=== PATIENT | male | born 1980 | race African-American/Black ===

== ENCOUNTER 2017-07-04 19:35 | Emergency (ER) | payer OTHER ==
[2017-07-04] MEDS ORDERED: TETRACAINE HCL 0.5% 2ML OPTH ONE (20:17)
[2017-07-04] MEDS ORDERED: NA CHLORIDE 0.9% 2,000 ML ONE (20:23)
[2017-07-04] MEDS ORDERED: FLUORESCEIN SODIUM 0.6 MG/WRAP ONE (21:07)
[2017-07-04] MEDS ORDERED: GENTAMICIN 0.3% OPTH DROP 5ML ONE ×2 (21:20→21:24)
--- NOTE | 2017-07-04 21:28 | EDPHYS ---
Physician Documentation [facility] Name: Josué Haney Age: 36 yrs Sex: Male : 1980 Arrival Date: 07/04/2017 Time: 19:37 Bed 20 Private MD: ED Physician José Luis Abel HPI: 07/04 21:18 This 36 yrs old Black Male presents to ER via Ambulatory with complaints of Foreign jr8 Body In Eye, Eye Pain. 21:18 The patient is experiencing burning, pain, redness, tearing, The patient sustained jr8 Unknown. Onset: The symptoms/episode began/occurred acutely, today. Duration: the symptoms are continuous. Aggravated by opening eye, Alleviated by nothing. Associated signs and symptoms: Pertinent positives: None. Patient does not utilize any form of vision correction. Severity of symptoms: At their worst the symptoms were moderate in the emergency department the symptoms are unchanged. The patient has not experienced similar symptoms in the past. The patient has not recently seen a physician. Patient stated that he was cleaning at work. Thinks he may have got a chemical dust in eyes. Was wearing eye protection but with sweat thinks it transferred into eyes. Utilized eye wash station prior to arrival but still having burning in eyes . Historical: - Allergies: 19:47 No Known Allergies; bp - Home Meds: 19:47 None [Active]; bp - PMHx: 19:47 None; bp - Immunization history:: Adult Immunizations up to date. - Social history:: Smoking status: Patient uses tobacco products, smokes one-half pack cigarettes per day, Patient uses alcohol, occasionally. ROS: 21:18 ENT: Negative for injury, pain, and discharge, Neck: Negative for injury, pain, and jr8 swelling, Cardiovascular: Negative for chest pain, palpitations, and edema, Respiratory: Negative for shortness of breath, cough, wheezing, and pleuritic chest pain, Abdomen/GI: Negative for abdominal pain, nausea, vomiting, diarrhea, and constipation, Back: Negative for injury and pain, MS/Extremity: Negative for injury and deformity, Skin: Negative for injury, rash, and discoloration, Neuro: Negative for headache, weakness, numbness, tingling, and seizure. 21:18 Eyes: Positive for pain, redness, tearing, of the right eye and left eye. Exam: 21:18 Head/Face: Normocephalic, atraumatic. ENT: Nares patent. No nasal discharge, no jr8 septal abnormalities noted. Tympanic membranes are normal and external auditory canals are clear. Oropharynx with no redness, swelling, or masses, exudates, or evidence of obstruction, uvula midline. Mucous membranes moist. Cardiovascular: Regular rate and rhythm with a normal S1 and S2. No gallops, murmurs, or rubs. Normal PMI, no JVD. No pulse deficits. Respiratory: Lungs have equal breath sounds bilaterally, clear to auscultation and percussion. No rales, rhonchi or wheezes noted. No increased work of breathing, no retractions or nasal flaring. Skin: Warm, dry with normal turgor. Normal color with no rashes, no lesions, and no evidence of cellulitis. MS/ Extremity: Pulses equal, no cyanosis. Neurovascular intact. Full, normal range of motion. Neuro: Awake and alert, GCS 15, oriented to person, place, time, and situation. Cranial nerves II-XII grossly intact. Motor strength 5/5 in all extremities. Sensory grossly intact. Cerebellar exam normal. Normal gait. 21:18 Eyes: Periorbital structures: swelling, that is mild, bilaterally, Pupils: equal, round, and reactive to light and accomodation, Extraocular movements: intact throughout, Conjunctiva: injected, bilaterally, tearing noted, bilaterally, Corneas: abrasion, that is small, on the left, on the right, a fluorescein strip employed to appreciate the findings, Sclera: no appreciated abnormality, Anterior chamber: normal, Lids and lashes: appear normal. Vital Signs: 19:47 BP 128 / 78; Pulse 87; Resp 16; Temp 98.8; Pulse Ox 98% ; Weight 63.5 kg; Height 5 ft. bp 6 in. (167.64 cm); 21:40 BP 120 / 68; Pulse 78; Resp 18; Pulse Ox 100% on R/A; Pain 0/10; ea 19:47 Body Mass Index 22.60 (63.50 kg, 167.64 cm) bp Visual Acuity: 21:10 Left Eye Visual acuity 20/20, ; Right Eye Visual acuity 20/20, ; Without Lenses; ea MDM: 20:08 Patient medically screened. jr8 21:18 Data reviewed: vital signs, nurses notes, and as a result, I will discharge patient. jr8 Data interpreted: Pulse oximetry: on room air is 98 %. Interpretation: normal. Counseling: I had a detailed discussion with the patient and/or guardian regarding: the historical points, exam findings, and any diagnostic results supporting the discharge/admit diagnosis, the need for outpatient follow up, an opthalmologist, to return to the emergency department if symptoms worsen or persist or if there are any questions or concerns that arise at home. ED course: discussed with patient that he needs to f/u with ophthalmology tomorrow for further examination of chemical exposure. Patient felt better after Jb lenses washout. Would f/u with ophthalmology tomorrow . Administered Medications: 20:20 Drug: Tetracaine Drops 0.5 % 1 drops Route: Ophthalmic; Site: both eyes; ea 21:38 Drug: Gentamicin Ointment 0.3 % 0.5 inches Route: Ophthalmic; Site: both eyes; ea Disposition: 07/04/17 21:27 Discharged to Home. Impression: Injury of conjunctiva and corneal abrasion without foreign body, right eye, Injury of conjunctiva and corneal abrasion without foreign body, left eye. - Condition is Stable. - Discharge Instructions: Corneal Abrasion. - Prescriptions for Gentamicin 0.3 % (3 mg/gram) Ophthalmic Ointment - apply 0.5 inch by OPHTHALMIC route 2-3 times daily for 7 days to apply to both eyes; 3.5 gram. - Medication Reconciliation Form, Thank You Letter, Antibiotic Education, Prescription Opioid Use, Work release form form. - Follow up: Chepe Pennington MD; When: Tomorrow; Reason: Recheck today's complaints, Continuance of care, Re-evaluation by your physician. - Problem is new. - Symptoms have improved. Addendum: 07/20/2017 21:53 Co-signature as Attending Physician, José Luis Abel MD. g s Signatures: Torsten Ruiz PA PA jr8 Shannon Romero RN RN ea Starr, Gregory, MD MD gs Peltier, Brian, RN RN bp Corrections: (The following items were deleted from the chart) 07/04 21:50 21:27 07/04/2017 21:27 Discharged to Home. Impression: Injury of conjunctiva and ea corneal abrasion without foreign body, right eye; Injury of conjunctiva and corneal abrasion without foreign body, left eye. Condition is Stable. Forms are Medication Reconciliation Form, Thank You Letter, Antibiotic Education, Prescription Opioid Use. Follow up: Chepe Pennington; When: Tomorrow; Reason: Recheck today's complaints, Continuance of care, Re-evaluation by your physician. Problem is new. Symptoms have improved. jr8
--- NOTE | 2017-07-04 21:28 | ER ---
Nurse's Notes [facility] Name: Josué Haney Age: 36 yrs Sex: Male : 1980 Arrival Date: 07/04/2017 Time: 19:37 Bed 20 Private MD: Diagnosis: Injury of conjunctiva and corneal abrasion without foreign body, right eye;Injury of conjunctiva and corneal abrasion without foreign body, left eye Presentation: 07/04 19:46 Presenting complaint: Patient states: I GOT SOMETHING IN MY EYE AT WORK. Transition of bp care: patient was not received from another setting of care. 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 The patient denies any loss of vision. Onset of symptoms was July 04, 2017 at 12:00. Initial Sepsis Screen: Does the patient meet any 2 criteria? No. Patient's initial sepsis screen is negative. Does the patient have a suspected source of infection? No. Patient's initial sepsis screen is negative. Care prior to arrival: None. 19:46 Method Of Arrival: Ambulatory bp 19:46 Acuity: LAVINIA 3 bp Triage Assessment: 19:47 General: Appears distressed, comfortable, Behavior is calm, cooperative, appropriate bp for age. Pain: Complains of pain in left eye. EENT: Sclera/Cornea are reddened in outer aspect of conjuctiva of right eye, iris of right eye, inner aspect of conjuctiva of right eye, outer aspect of conjuctiva of left eye, iris of left eye and inner aspect of conjunctiva of left eye. Neuro: Level of Consciousness is awake, alert, obeys commands, Oriented to person, place, time, situation, Appropriate for age. Cardiovascular: No deficits noted. Respiratory: Airway is patent Respiratory effort is even, unlabored, Respiratory pattern is regular, symmetrical. GI: No signs and/or symptoms were reported involving the gastrointestinal system. : No signs and/or symptoms were reported regarding the genitourinary system. Derm: No deficits noted. Musculoskeletal: Circulation, motion, and sensation intact. Range of motion: intact in all extremities. Historical: - Allergies: 19:47 No Known Allergies; bp - Home Meds: 19:47 None [Active]; bp - PMHx: 19:47 None; bp - Immunization history:: Adult Immunizations up to date. - Social history:: Smoking status: Patient uses tobacco products, smokes one-half pack cigarettes per day, Patient uses alcohol, occasionally. Screenin:06 Abuse screen: Denies threats or abuse. Nutritional screening: No deficits noted. ea Tuberculosis screening: No symptoms or risk factors identified. Fall Risk None identified. Assessment: 20:05 General: Appears uncomfortable, Behavior is calm, cooperative, appropriate for age. ea Pain: Complains of pain in right eye and left eye. Neuro: Level of Consciousness is awake, alert, obeys commands, Oriented to person, place, time, situation. Cardiovascular: Patient's skin is warm and dry. Respiratory: Airway is patent Respiratory effort is even, unlabored, Respiratory pattern is regular, symmetrical. GI: No signs and/or symptoms were reported involving the gastrointestinal system. : No signs and/or symptoms were reported regarding the genitourinary system. EENT: EENT: Eyes are tearing on outer aspect of conjuctiva of right eye, iris of right eye, inner aspect of conjuctiva of right eye, right inner canthus, outer aspect of conjuctiva of left eye, iris of left eye and inner aspect of conjunctiva of left eye redness noted to hugo eyes. Derm: Skin is pink, warm \T\ dry. 21:09 Reassessment: Patient and/or family updated on plan of care and expected duration. Pain ea level reassessed. Patient is alert, oriented x 3, equal unlabored respirations, skin warm/dry/pink. 21:46 Reassessment: Patient and/or family updated on plan of care and expected duration. Pain ea level reassessed. Patient is alert, oriented x 3, equal unlabored respirations, skin warm/dry/pink. Discharge instructions given to patient, verbalized the understanding of instruction. Vital Signs: 19:47 BP 128 / 78; Pulse 87; Resp 16; Temp 98.8; Pulse Ox 98% ; Weight 63.5 kg; Height 5 ft. bp 6 in. (167.64 cm); 21:40 BP 120 / 68; Pulse 78; Resp 18; Pulse Ox 100% on R/A; Pain 0/10; ea 19:47 Body Mass Index 22.60 (63.50 kg, 167.64 cm) bp Visual Acuity: 21:10 Left Eye Visual acuity 20/20, ; Right Eye Visual acuity 20/20, ; Without Lenses; ea ED Course: 19:37 Patient arrived in ED. am2 19:47 Triage completed. bp 19:47 Arm band placed on. EKG completed in triage. Results shown to MD. EKG completed in bp triage. Results shown to MD. 19:49 Lobo Weldon, RN is Primary Nurse. bp 19:52 Torsten Ruiz PA is PHCP. jr8 19:52 José Luis Abel MD is Attending Physician. jr8 20:30 Patient has correct armband on for positive identification. Bed in low position. Call ea light in reach. 21:09 Eye irrigation of both eyes with 1 liter normal saline, Patient tolerated well. ea 21:26 Chepe Pennington MD is Referral Physician. jr8 21:47 No provider procedures requiring assistance completed. Patient did not have IV access ea during this emergency room visit. Administered Medications: 20:20 Drug: Tetracaine Drops 0.5 % 1 drops Route: Ophthalmic; Site: both eyes; ea 21:38 Drug: Gentamicin Ointment 0.3 % 0.5 inches Route: Ophthalmic; Site: both eyes; ea Outcome: 21:27 Discharge ordered by MD. jr8 21:47 Discharged to home ambulatory, with family. ea 21:47 Condition: improved 21:47 Discharge instructions given to patient, Instructed on discharge instructions, follow up and referral plans. medication usage, Demonstrated understanding of instructions, follow-up care, medications, Prescriptions given X 1. 21:50 Patient left the ED. ea Signatures: Torsten Ruiz PA PA jr8 Layla Vidal am2 Shannon Romero, RN RN ea Lobo Weldon, RN RN bp
== END 2017-07-04 21:50 | disposition home or self-care (01) ==
LOC: ER 19:35
DX: S05.02XA Injury of conjunctiva and corneal abrasion without foreign body, left eye, initial encounter (principal); S05.01XA Injury of conjunctiva and corneal abrasion without foreign body, right eye, initial encounter; F17.210 Nicotine dependence, cigarettes, uncomplicated; X58.XXXA Exposure to other specified factors, initial encounter; Y93.89 Activity, other specified; Y92.9 Unspecified place or not applicable
CPT/HCPCS: 99283; J7030

== ENCOUNTER 2017-08-24 18:36 | Emergency (ER) | payer OTHER ==
[2017-08-24] MEDS ORDERED: NA CHLORIDE 0.9% 1,000 ML ONE (19:53)
[2017-08-24] MEDS ORDERED: TETRACAINE HCL 0.5% 2ML OPTH ONE (19:53)
[2017-08-24] MEDS ORDERED: FLUORESCEIN SODIUM 0.6 MG/WRAP ONE (19:53)
--- NOTE | 2017-08-24 20:26 | ER ---
Nurse's Notes [facility] Name: Josué Haney Age: 37 yrs Sex: Male : 1980 Arrival Date: 08/24/2017 Time: 18:39 Bed Treatment Private MD: None, None Diagnosis: Injury of conjunctiva and corneal abrasion without foreign body Presentation: 08/24 18:47 Presenting complaint: Patient states: "I got something in my right eye yesterday at the [employer] and I flushed it out. I don't think anything is in there, but it's irritated. I have been here for it before. I want my eye numbed and flushed.". Presenting complaint:. Transition of care: patient was not received from another setting of care. Onset of symptoms was August 23, 2017. Risk Assessment: Do you want to hurt yourself or someone else? Patient reports no desire to harm self or others. Initial Sepsis Screen: Does the patient meet any 2 criteria? No. Patient's initial sepsis screen is negative. Does the patient have a suspected source of infection? No. Patient's initial sepsis screen is negative. Care prior to arrival: None. 18:47 Method Of Arrival: Ambulatory lk1 18:47 Acuity: LAVINIA 4 lk1 Historical: - Allergies: 18:49 No Known Allergies; lk1 - PMHx: 18:49 None; lk1 - PSHx: 18:49 None; lk1 - Immunization history:: Adult Immunizations up to date. - Social history:: Smoking status: Patient uses tobacco products, smokes one pack cigarettes per day. - Ebola Screening: : No symptoms or risks identified at this time. Screenin:45 Abuse screen: Denies threats or abuse. Nutritional screening: No deficits noted. bb Tuberculosis screening: No symptoms or risk factors identified. Fall Risk None identified. Assessment: 19:45 General: Appears uncomfortable, Behavior is calm, cooperative. Pain: Complains of pain bb in right eye. Neuro: Level of Consciousness is awake, alert, obeys commands, Oriented to person, place, time, situation. Cardiovascular: No deficits noted. Respiratory: Respiratory effort is even, unlabored. GI: No signs and/or symptoms were reported involving the gastrointestinal system. Derm: Skin is clammy, Skin is normal, Skin temperature is warm. Musculoskeletal: Circulation, motion, and sensation intact. 20:51 Reassessment: Patient is alert, oriented x 3, equal unlabored respirations, skin bb warm/dry/pink. pt states his eye is still slightly irritated but is feeling better now, pt verbalized understanding of and agrees to plan of care discharge instructions given, pt ambulated with steady gait to exit accompanied by family. Vital Signs: 18:49 BP 117 / 71; Pulse 76; Resp 15; Temp 98.9(TE); Pulse Ox 99% on R/A; Weight 63.5 kg (R); lk1 Height 5 ft. 6 in. (167.64 cm) (R); Pain 0/10; 20:34 BP 124 / 74; Pulse 80; Resp 18; Temp 97.9; Pulse Ox 99% on R/A; Pain 0/10; fu 18:49 Body Mass Index 22.60 (63.50 kg, 167.64 cm) lk1 ED Course: 18:39 Patient arrived in ED. mr 18:39 None, None is Private Physician. mr 18:48 Triage completed. lk1 18:50 Arm band placed on right wrist. lk1 19:33 Torsten Ruiz PA is PHCP. jr8 19:33 Dong Jung MD is Attending Physician. jr8 19:45 Patient has correct armband on for positive identification. Adult w/ patient. bb 19:45 No provider procedures requiring assistance completed. Patient did not have IV access bb during this emergency room visit. 20:10 Eye irrigation of right eye w/ Donald lens with 1 liter normal saline, Patient bb tolerated well. 20:25 Chepe Pennington MD is Referral Physician. jr8 Administered Medications: 20:01 CANCELLED (Duplicate Order): Tetracaine Drops 0.5 % 1 drops Ophthalmic once bb 20:03 Drug: NS 0.9% 1000 ml {Note: verbal order per Vipin ALBA administer to right eye via bb donald lens.} Route: IV; Rate: 1000 ml; Site: Other; 20:50 Follow up: IV Status: Completed infusion; IV Intake: 1000ml bb 20:04 Drug: Tetracaine Drops 0.5 % 1 drops Route: Ophthalmic; Site: right eye; bb 20:04 Drug: Fluorescein Strip 1 strip Route: Ophthalmic; Site: right eye; bb Intake: 20:50 IV: 1000ml; Total: 1000ml. bb Outcome: 20:26 Discharge ordered by MD. dyson 20:53 Discharged to home ambulatory, with family. clay 20:53 Condition: stable 20:53 Discharge instructions given to patient, Instructed on discharge instructions, follow up and referral plans. medication usage, Demonstrated understanding of instructions, follow-up care, medications, Prescriptions given X 1. 20:53 Patient left the ED. bb Signatures: Ceci Alicea Brenda, RN RN Torsten Blanchard PA PA jr8 Magalie Taylor RN RN lk1 Nikhil Denson RN RN
--- NOTE | 2017-08-24 20:26 | EDPHYS ---
Physician Documentation [facility] Name: Josué Haney Age: 37 yrs Sex: Male : 1980 Arrival Date: 08/24/2017 Time: 18:39 Bed Treatment Private MD: None, None ED Physician Dong Jung HPI: 08/24 20:14 This 37 yrs old Black Male presents to ER via Ambulatory with complaints of Foreign jr8 Body In Eye. 20:14 The patient is experiencing burning, redness, tearing. Onset: The symptoms/episode jr8 began/occurred acutely, today. Duration: the symptoms are continuous. Aggravated by light, Alleviated by nothing. Associated signs and symptoms: Pertinent positives: None. Patient does not utilize any form of vision correction. Severity of symptoms: At their worst the symptoms were mild in the emergency department the symptoms are unchanged. The patient has not experienced similar symptoms in the past. The patient has not recently seen a physician. Patient stated that he got carwash soap in eye. Had washed it out earlier and felt better. After a while it started to become irritated again . Historical: - Allergies: 18:49 No Known Allergies; lk1 - PMHx: 18:49 None; lk1 - PSHx: 18:49 None; lk1 - Immunization history:: Adult Immunizations up to date. - Social history:: Smoking status: Patient uses tobacco products, smokes one pack cigarettes per day. - Ebola Screening: : No symptoms or risks identified at this time. ROS: 20:14 ENT: Negative for injury, pain, and discharge, Neck: Negative for injury, pain, and jr8 swelling, Cardiovascular: Negative for chest pain, palpitations, and edema, Respiratory: Negative for shortness of breath, cough, wheezing, and pleuritic chest pain, Abdomen/GI: Negative for abdominal pain, nausea, vomiting, diarrhea, and constipation, Back: Negative for injury and pain, MS/Extremity: Negative for injury and deformity, Skin: Negative for injury, rash, and discoloration, Neuro: Negative for headache, weakness, numbness, tingling, and seizure. 20:14 Eyes: Positive for pain, redness, tearing, of the right eye. Exam: 20:14 Visual Acuity: Visual acuity is within normal limits. jr8 20:14 Constitutional: This is a well developed, well nourished patient who is awake, alert, and in no acute distress. Head/Face: Normocephalic, atraumatic. ENT: Nares patent. No nasal discharge, no septal abnormalities noted. Tympanic membranes are normal and external auditory canals are clear. Oropharynx with no redness, swelling, or masses, exudates, or evidence of obstruction, uvula midline. Mucous membranes moist. Cardiovascular: Regular rate and rhythm with a normal S1 and S2. No gallops, murmurs, or rubs. Normal PMI, no JVD. No pulse deficits. Respiratory: Lungs have equal breath sounds bilaterally, clear to auscultation and percussion. No rales, rhonchi or wheezes noted. No increased work of breathing, no retractions or nasal flaring. Skin: Warm, dry with normal turgor. Normal color with no rashes, no lesions, and no evidence of cellulitis. MS/ Extremity: Pulses equal, no cyanosis. Neurovascular intact. Full, normal range of motion. Neuro: Awake and alert, GCS 15, oriented to person, place, time, and situation. Cranial nerves II-XII grossly intact. Motor strength 5/5 in all extremities. Sensory grossly intact. Cerebellar exam normal. Normal gait. 20:14 Eyes: Periorbital structures: appear normal, Pupils: equal, round, and reactive to light and accomodation, Extraocular movements: intact throughout, Conjunctiva: injected, in the right eye, tearing noted, in right eye, Corneas: abrasion, that is small, on the right, a fluorescein strip employed to appreciate the findings, Sclera: no appreciated abnormality, Lids and lashes: appear normal, Examination of the other eye reveals no obvious gross abnormality. Vital Signs: 18:49 BP 117 / 71; Pulse 76; Resp 15; Temp 98.9(TE); Pulse Ox 99% on R/A; Weight 63.5 kg (R); lk1 Height 5 ft. 6 in. (167.64 cm) (R); Pain 0/10; 20:34 BP 124 / 74; Pulse 80; Resp 18; Temp 97.9; Pulse Ox 99% on R/A; Pain 0/10; fu 18:49 Body Mass Index 22.60 (63.50 kg, 167.64 cm) lk1 Procedures: 20:23 Eye Exam: Fluorescein. jr8 MDM: 19:33 Patient medically screened. jr8 20:23 Data reviewed: vital signs, nurses notes, and as a result, I will discharge patient. jr8 Data interpreted: Pulse oximetry: on room air is 99 %. Interpretation: normal. Counseling: I had a detailed discussion with the patient and/or guardian regarding: the historical points, exam findings, and any diagnostic results supporting the discharge/admit diagnosis, the need for outpatient follow up, an opthalmologist, to return to the emergency department if symptoms worsen or persist or if there are any questions or concerns that arise at home. ED course: explained to patient he has small abrasion noted to right cornea. Will need drops for a few days and to f/u with eye doctor. Patient good with this and will follow up . 08/24 20:01 Order name: Fluoresene Opth strip; Complete Time: 20:04 bb Administered Medications: 20:01 CANCELLED (Duplicate Order): Tetracaine Drops 0.5 % 1 drops Ophthalmic once bb 20:03 Drug: NS 0.9% 1000 ml {Note: verbal order per Vipin ALBA administer to right eye via bb donald lens.} Route: IV; Rate: 1000 ml; Site: Other; 20:50 Follow up: IV Status: Completed infusion; IV Intake: 1000ml bb 20:04 Drug: Tetracaine Drops 0.5 % 1 drops Route: Ophthalmic; Site: right eye; bb 20:04 Drug: Fluorescein Strip 1 strip Route: Ophthalmic; Site: right eye; bb Disposition: 08/25 08:04 Co-signature as Attending Physician, Dong Jung MD I agree with the assessment and wa plan of care. Disposition: 08/24/17 20:26 Discharged to Home. Impression: Injury of conjunctiva and corneal abrasion without foreign body. - Condition is Stable. - Discharge Instructions: Corneal Abrasion. - Prescriptions for Gentamicin 0.3 % Ophthalmic Drops - instill 2 drops by OPHTHALMIC route every 4 hours for 7 days; 1 bottle. - Medication Reconciliation Form, Thank You Letter, Antibiotic Education, Prescription Opioid Use form. - Follow up: Chepe Pennington MD; When: 5 - 6 days; Reason: Recheck today's complaints, Continuance of care, Re-evaluation by your physician. - Problem is new. - Symptoms have improved. Signatures: Crystal Pruitt, RN RN bb Torsten Ruiz PA PA jr8 Magalie Taylor RN RN lk1 Dong Jung MD MD wa Corrections: (The following items were deleted from the chart) 08/24 20:01 20:01 Tetracaine Drops 0.5 % 1 drops Ophthalmic once ordered. jr8 20:24 20:14 Eyes: Periorbital structures: appear normal, Pupils: equal, round, and reactive jr8 to light and accomodation, Extraocular movements: intact throughout, Conjunctiva: injected, in the right eye, tearing noted, in right eye, Corneas: are normal, Sclera: no appreciated abnormality, Lids and lashes: appear normal, Examination of the other eye reveals no obvious gross abnormality, jr8 20:53 20:26 08/24/2017 20:26 Discharged to Home. Impression: Injury of conjunctiva and bb corneal abrasion without foreign body. Condition is Stable. Forms are Medication Reconciliation Form, Thank You Letter, Antibiotic Education, Prescription Opioid Use. Follow up: Chepe Pennington; When: 5 - 6 days; Reason: Recheck today's complaints, Continuance of care, Re-evaluation by your physician. Problem is new. Symptoms have improved. jr8
== END 2017-08-24 20:53 | disposition home or self-care (01) ==
LOC: ER 18:36
DX: S05.01XA Injury of conjunctiva and corneal abrasion without foreign body, right eye, initial encounter (principal); X58.XXXA Exposure to other specified factors, initial encounter; Y93.9 Activity, unspecified; Y92.9 Unspecified place or not applicable; F17.210 Nicotine dependence, cigarettes, uncomplicated
CPT/HCPCS: 96360; 99283; J7030

== ENCOUNTER 2017-08-29 14:57 | Emergency (ER) | payer OTHER ==
[2017-08-29] MEDS ORDERED: TETRACAINE HCL 0.5% 2ML OPTH ONE (15:35)
[2017-08-29] MEDS ORDERED: FLUORESCEIN SODIUM 0.6 MG/WRAP ONE (15:35)
--- NOTE | 2017-08-29 16:04 | ER ---
Nurse's Notes [facility] Name: Josué Haney Age: 37 yrs Sex: Male : 1980 Arrival Date: 08/29/2017 Time: 14:59 Bed 12 Private MD: None, None Diagnosis: Conjunctivitis Presentation: 08/29 15:01 Presenting complaint: Patient states: i got soap in my R eye a couple of days ago and i hj was here couple of days ago and they've flushed and it was better and i think its back and i want to have it flushed again; denies blurry vision; denies trauma to the area;. Transition of care: patient was not received from another setting of care. Onset of symptoms was August 29, 2017. Risk Assessment: Do you want to hurt yourself or someone else? Patient reports no desire to harm self or others. Initial Sepsis Screen: Does the patient meet any 2 criteria? No. Patient's initial sepsis screen is negative. Does the patient have a suspected source of infection? No. Patient's initial sepsis screen is negative. Care prior to arrival: None. 15:01 Method Of Arrival: Ambulatory 15:01 Acuity: LAVINIA 4 hj Triage Assessment: 15:04 General: Appears in no apparent distress. uncomfortable, Behavior is calm, cooperative, hj appropriate for age. Pain: Complains of pain in right eye. Historical: - Allergies: 15:03 No Known Allergies; hj - Home Meds: 15:03 None [Active]; hj - PMHx: 15:03 None; hj - PSHx: 15:03 None; hj - Immunization history:: Adult Immunizations up to date. - Social history:: Smoking status: Patient uses tobacco products, smokes one-half pack cigarettes per day, Patient uses alcohol, occasionally. - Ebola Screening: : Patient negative for fever greater than or equal to 101.5 degrees Fahrenheit, and additional compatible Ebola Virus Disease symptoms Patient denies exposure to infectious person Patient denies travel to an Ebola-affected area in the 21 days before illness onset. Screenin:04 Abuse screen: Denies threats or abuse. Denies injuries from another. Nutritional hj screening: No deficits noted. Tuberculosis screening: No symptoms or risk factors identified. Fall Risk None identified. Assessment: 15:36 General: Appears in no apparent distress. uncomfortable, Behavior is calm, cooperative, hj appropriate for age. Pain: Pain radiates to right eye. Neuro: Level of Consciousness is awake, alert, obeys commands, Oriented to person, place, time, situation, Appropriate for age. Cardiovascular: Capillary refill < 3 seconds Patient's skin is warm and dry. Respiratory: Airway is patent Respiratory effort is even, unlabored, Respiratory pattern is regular, symmetrical. GI: No signs and/or symptoms were reported involving the gastrointestinal system. : No signs and/or symptoms were reported regarding the genitourinary system. EENT: Eyes are tearing on iris of right eye. Derm: No signs and/or symptoms reported regarding the dermatologic system. Musculoskeletal: No signs and/or symptoms reported regarding the musculoskeletal system. Vital Signs: 15:04 BP 123 / 81; Pulse 94; Resp 18; Temp 99.4(O); Pulse Ox 100% on R/A; Weight 63.5 kg; hj Height 5 ft. 6 in. (167.64 cm); Pain 1/10; 15:04 Body Mass Index 22.60 (63.50 kg, 167.64 cm) hj Visual Acuity: 15:39 Left Eye Visual acuity 20/20, ; Right Eye Visual acuity 20/20, ; Both Eyes Visual hj acuity 20/20; Without Lenses; ED Course: 14:59 Patient arrived in ED. sb2 15:00 None, None is Private Physician. sb2 15:03 Triage completed. hj 15:04 Arm band placed on right wrist. hj 15:04 Patient has correct armband on for positive identification. Bed in low position. Call hj light in reach. Side rails up X 1. 15:21 David Hendricks PA is PHCP. [facility] 15:21 José Luis Able MD is Attending Physician. [facility] 15:30 Alex Brothers, EDGAR is Primary Nurse. hj 16:15 No provider procedures requiring assistance completed. Patient did not have IV access hj during this emergency room visit. Administered Medications: 15:30 Drug: Tetracaine Solution (0.5 %) 1 application Route: Topical; Site: right eye; hj Outcome: 16:03 Discharge ordered by . [facility] 16:15 Discharged to home ambulatory. hj 16:15 Condition: stable 16:15 Discharge instructions given to patient, Instructed on discharge instructions, follow up and referral plans. medication usage, Demonstrated understanding of instructions, follow-up care, medications, Prescriptions given X 1. 16:15 Patient left the ED. hj Signatures: David Hendricks PA PA jmm Joaquin, Henry, RN RN Shavon Mullen sb2 Corrections: (The following items were deleted from the chart) 15:06 15:04 Pulse 94bpm; Resp 18bpm; Pulse Ox 100% RA; Temp 99.4F Oral; 63.5 kg; Height 5 ft. hj 6 in.; BMI: 22.6; Pain 1/10; hj
--- NOTE | 2017-08-29 16:04 | EDPHYS ---
Physician Documentation [facility] Name: Josué Haney Age: 37 yrs Sex: Male : 1980 Arrival Date: 08/29/2017 Time: 14:59 Bed 12 Private MD: None, None ED Physician José Luis Abel HPI: 08/29 15:30 This 37 yrs old Black Male presents to ER via Ambulatory with complaints of Eye Problem.[facility] 15:30 The patient sustained a splash. Onset: The symptoms/episode began/occurred acutely, on [facility] 08/24/2017. This is a 37 year old male with no chronic medical conditions that presents to the ED with right eye irritation beginning approx 5 days ago after his right eye eas splashed with soap 5 days ago. The patient states that he would like to get irrigation of his right eye again to relieve discomfort. . Patient denies change in vision, denies fever, denies pain. Historical: - Allergies: 15:03 No Known Allergies; hj - Home Meds: 15:03 None [Active]; hj - PMHx: 15:03 None; hj - PSHx: 15:03 None; hj - Immunization history:: Adult Immunizations up to date. - Social history:: Smoking status: Patient uses tobacco products, smokes one-half pack cigarettes per day, Patient uses alcohol, occasionally. - Ebola Screening: : Patient negative for fever greater than or equal to 101.5 degrees Fahrenheit, and additional compatible Ebola Virus Disease symptoms Patient denies exposure to infectious person Patient denies travel to an Ebola-affected area in the 21 days before illness onset. ROS: 15:30 Constitutional: Negative for fever, chills, and weight loss. jmm 15:30 Eyes: Positive for redness, Negative for vision loss, visual disturbance. 15:30 All other systems are negative. Exam: 15:30 Constitutional: This is a well developed, well nourished patient who is awake, alert, jmm and in no acute distress. 15:30 Cardiovascular: Regular rate and rhythm. No edema appreciated Respiratory: Normal respirations, no respiratory distress appreciated Back: Normal ROM Skin: General appearance color normal MS/ Extremity: Moves all extremities, no obvious deformities appreciated, no edema noted to the lower extremities Neuro: Awake and alert, normal gait Psych: Behavior is normal, Mood is normal, Patient is cooperative and pleasant 15:30 Eyes: Extraocular movements: intact throughout, Conjunctiva: injected, in the right eye. 15:30 Eyes: Corneas: abrasion, is not appreciated, foreign body, is not appreciated, a [facility] fluorescein strip employed to appreciate the findings. Vital Signs: 15:04 BP 123 / 81; Pulse 94; Resp 18; Temp 99.4(O); Pulse Ox 100% on R/A; Weight 63.5 kg; hj Height 5 ft. 6 in. (167.64 cm); Pain 1/10; 15:04 Body Mass Index 22.60 (63.50 kg, 167.64 cm) hj Visual Acuity: 15:39 Left Eye Visual acuity 20/20, ; Right Eye Visual acuity 20/20, ; Both Eyes Visual hj acuity 20/20; Without Lenses; MDM: 15:21 Patient medically screened. brittnee 16:00 ED course: Patient's visual acuity is normal. Right eye IOP is 18. PH is 7 using litmus [facility] paper. Patient most likely has a chemical conjunctivitis from the injury on 08/24/2017. Patient is encouraged to follow up with Ophthalmology. Patient understood and agrees with the plan of care. . 16:02 Data reviewed: vital signs, nurses notes. Counseling: I had a detailed discussion with [facility] the patient and/or guardian regarding: the historical points, exam findings, and any diagnostic results supporting the discharge/admit diagnosis, the need for outpatient follow up, to return to the emergency department if symptoms worsen or persist or if there are any questions or concerns that arise at home. 08/29 15:29 Order name: Fluoresene Opth strip; Complete Time: 15:30 [facility] 08/29 15:29 Order name: Eye Tray; Complete Time: 15:30 [facility] 08/29 15:29 Order name: Visual Acuity; Complete Time: 15:55 [facility] Administered Medications: 15:30 Drug: Tetracaine Solution (0.5 %) 1 application Route: Topical; Site: right eye; Disposition: 20:54 Co-signature as Attending Physician, José Luis Abel MD. Disposition: 08/29/17 16:03 Discharged to Home. Impression: Conjunctivitis. - Condition is Stable. - Discharge Instructions: Conjunctivitis, Chemical. - Prescriptions for Erythromycin 5 mg/gram (0.5 %) Ophthalmic Ointment - apply 1 centimeter by OPHTHALMIC route 2-3 times daily for 7 days; 1 tube. - Medication Reconciliation Form, Thank You Letter, Antibiotic Education, Prescription Opioid Use form. - Follow up: Private Physician; When: 2 - 3 days; Reason: Continuance of care. Signatures: Jose Manuel Garcia MD MD cha Mickail, Joel, PA PA jmm Joaquin, Henry, RN RN José Luis Hoover MD MD gs Corrections: (The following items were deleted from the chart) 16:15 16:03 08/29/2017 16:03 Discharged to Home. Impression: Conjunctivitis. Condition is hj Stable. Forms are Medication Reconciliation Form, Thank You Letter, Antibiotic Education, Prescription Opioid Use. Follow up: Private Physician; When: 2 - 3 days; Reason: Continuance of care. lauren
== END 2017-08-29 16:15 | disposition home or self-care (01) ==
LOC: ER 14:57
DX: H10.31 Unspecified acute conjunctivitis, right eye (principal); F17.210 Nicotine dependence, cigarettes, uncomplicated
CPT/HCPCS: 99283

== ENCOUNTER 2017-08-29 22:53 | Emergency (ER) | payer OTHER ==
[2017-08-29] MEDS ORDERED: TETRACAINE HCL 0.5% 2ML OPTH ONE (23:37)
--- NOTE | 2017-08-30 00:51 | ER ---
Nurse's Notes [facility] Name: Josué Haney Age: 37 yrs Sex: Male : 1980 Arrival Date: 08/29/2017 Time: 22:53 Bed 28 Private MD: Diagnosis: Conjunctivitis-Right Eye Presentation: 08/29 22:58 Presenting complaint: Patient states: he was here earlier today and given RX for fc conjunctivitis which he has not started using yet but eye is still painful. Transition of care: patient was not received from another setting of care. Mechanism of Injury: No Mechanism of Injury. The patient denies any loss of vision. Onset of symptoms was August 29, 2017. Risk Assessment: Do you want to hurt yourself or someone else? Patient reports no desire to harm self or others. Initial Sepsis Screen: Does the patient meet any 2 criteria? No. Patient's initial sepsis screen is negative. Does the patient have a suspected source of infection? No. Patient's initial sepsis screen is negative. Care prior to arrival: None. 22:58 Method Of Arrival: Ambulatory fc 22:58 Acuity: LAVINIA 4 fc Historical: - Allergies: 22:59 No Known Allergies; fc - Home Meds: 22:59 None [Active]; fc - PMHx: 22:59 None; fc - PSHx: 22:59 None; fc - Immunization history:: Adult Immunizations up to date. - Social history:: Smoking status: Patient uses tobacco products, smokes one-half pack cigarettes per day, Patient uses alcohol, occasionally. - Ebola Screening: : No symptoms or risks identified at this time. Screenin/04 00:15 Abuse screen: Denies threats or abuse. Denies injuries from another. Nutritional kr2 screening: No deficits noted. Tuberculosis screening: No symptoms or risk factors identified. Fall Risk None identified. Assessment: 08/29 23:30 General: Appears in no apparent distress. comfortable, well groomed, well developed, kr2 well nourished, Behavior is calm, cooperative, appropriate for age. Pain: Complains of pain in eyes Pain does not radiate. Pain currently is 5 out of 10 on a pain scale. Quality of pain is described as burning, Is continuous, Alleviated by nothing. Aggravated by light. Neuro: Level of Consciousness is awake, alert, obeys commands, Oriented to person, place, time, situation, Appropriate for age. Cardiovascular: Capillary refill < 3 seconds in bilateral fingers Patient's skin is warm and dry. Respiratory: Airway is patent Respiratory effort is even, unlabored, Respiratory pattern is regular, symmetrical. EENT: Eyes are tearing on right inner canthus and left inner canthus Sclera/Cornea are reddened in outer aspect of conjuctiva of right eye, inner aspect of conjuctiva of right eye, outer aspect of conjuctiva of left eye and inner aspect of conjunctiva of left eye. Derm: Skin is intact, is healthy with good turgor, Skin is pink, warm \T\ dry. Musculoskeletal: Circulation, motion, and sensation intact. Vital Signs: 22:59 BP 128 / 91; Pulse 88; Resp 18 S; Temp 98.5(O); Pulse Ox 97% on R/A; Weight 65.77 kg fc (R); Height 5 ft. 6 in. (167.64 cm) (R); Pain 10/10; 22:59 Body Mass Index 23.40 (65.77 kg, 167.64 cm) fc Visual Acuity: 08/30 00:15 Left Eye Visual acuity 20/15, ; Right Eye Visual acuity 20/15, ; Both Eyes Visual kr2 acuity 20/15; Without Lenses; ED Course: 08/29 22:53 Patient arrived in ED. am2 22:59 Triage completed. fc 22:59 Arm band placed on right wrist. Patient placed in an exam room, on a stretcher. Family fc accompanied patient. 23:27 Mareille Watts, RN is Primary Nurse. kr2 23:30 Patient has correct armband on for positive identification. Bed in low position. Call kr2 light in reach. Side rails up X 1. Adult w/ patient. Pulse ox on. NIBP on. Door closed. Warm blanket given. Head of bed elevated. 23:53 Jose Manuel Ace PA is PHCP. cp 23:53 Gary Nava MD is Attending Physician. cp 08/30 00:38 No provider procedures requiring assistance completed. Patient did not have IV access kr2 during this emergency room visit. 00:48 Chepe Pennington MD is Referral Physician. cp 00:48 Referral Physician role handed off by Chepe Pennington MD cp 00:48 Chepe Pennington MD is Referral Physician. cp Administered Medications: No medications were administered Outcome: 00:39 Medical screen evaluation completed per provider. Patient declined treatment. kr2 00:39 Condition: good 00:39 Discharge instructions given to patient, Instructed on discharge instructions, follow up and referral plans. Demonstrated understanding of instructions, follow-up care, Following a medical screening exam, the patient was provided information regarding alternative care sites and resources available per registration personnel. 00:49 Discharge ordered by . cp 00:49 Patient left the ED. kr2 Signatures: Marianna Desai, RN RN Jose Manuel Ace PA PA cp Moreno, Amanda am2 Marielle Watts RN RN kr2 Corrections: (The following items were deleted from the chart) 00:39 00:39 Discharge instructions given to patient, Instructed on discharge instructions, kr2 follow up and referral plans. Demonstrated understanding of instructions, follow-up care, kr2
--- NOTE | 2017-08-30 00:51 | EDPHYS ---
Physician Documentation [facility] Name: Josué Haney Age: 37 yrs Sex: Male : 1980 Arrival Date: 08/29/2017 Time: 22:53 Bed 28 Private MD: ED Physician Gary Nava HPI: 08/30 00:15 This 37 yrs old Black Male presents to ER via Ambulatory with complaints of Foreign cp Body In Eye, Eye Pain. 00:15 The patient is experiencing pain, to the right eye. Onset: The symptoms/episode cp began/occurred today. Patient does not utilize any form of vision correction. The patient has been recently seen at the [facility] Emergency Department, today, for similar complaints given RX for antibiotic eye ointment. Patient reports he has not picked RX up from pharmacy. 00:15 Patient requesting repeat right eye irrigation. cp Historical: - Allergies: 08/29 22:59 No Known Allergies; fc - Home Meds: 22:59 None [Active]; fc - PMHx: 22:59 None; fc - PSHx: 22:59 None; fc - Immunization history:: Adult Immunizations up to date. - Social history:: Smoking status: Patient uses tobacco products, smokes one-half pack cigarettes per day, Patient uses alcohol, occasionally. - Ebola Screening: : No symptoms or risks identified at this time. ROS: 08/30 00:15 Constitutional: Negative for body aches, chills, fever, poor PO intake. cp 00:15 Eyes: Positive for pain, Negative for visual disturbance. cp 00:15 ENT: Negative for ear pain, sore throat, difficulty swallowing, difficulty handling secretions. 00:15 Respiratory: Negative for cough, shortness of breath, wheezing. 00:15 Skin: Negative for cellulitis, rash. 00:15 Neuro: Negative for altered mental status, headache, weakness. 00:15 All other systems are negative. Exam: 00:20 Constitutional: The patient appears in no acute distress, alert, awake, non-toxic, well cp developed, well nourished. 00:20 Head/Face: Normocephalic, atraumatic. cp 00:20 Eyes: Periorbital structures: appear normal, Pupils: equal, round, and reactive to light and accomodation, Extraocular movements: intact throughout, Conjunctiva: mild erythema right eye. Corneas: foreign body, is not appreciated, Sclera: no appreciated abnormality, Lids and lashes: appear normal, bilaterally. 00:20 ENT: External ear(s): are unremarkable, Nose: is normal, Mouth: is normal, Posterior pharynx: is normal, airway is patent, Voice: is normal. 00:20 Neck: ROM/movement: is normal, is supple, without pain, no range of motions limitations, no nuchal rigidity, Lymph nodes: no appreciated lymphadenopathy. 00:20 Chest/axilla: Inspection: normal. 00:20 Cardiovascular: Rate: normal. 00:20 Respiratory: the patient does not display signs of respiratory distress, Respirations: normal, no use of accessory muscles, no retractions, no splinting, no tachypnea, labored breathing, is not present. 00:20 Skin: cellulitis, is not appreciated, no rash present. 00:21 Visual Acuity: verbal results given by EDGAR Caba. cp Vital Signs: 08/29 22:59 BP 128 / 91; Pulse 88; Resp 18 S; Temp 98.5(O); Pulse Ox 97% on R/A; Weight 65.77 kg fc (R); Height 5 ft. 6 in. (167.64 cm) (R); Pain 10/10; 22:59 Body Mass Index 23.40 (65.77 kg, 167.64 cm) fc Visual Acuity: 08/30 00:15 Left Eye Visual acuity 20/15, ; Right Eye Visual acuity 20/15, ; Both Eyes Visual kr2 acuity 20/15; Without Lenses; MDM: 08/29 23:57 Patient medically screened. cp 08/30 00:15 Differential diagnosis: Corneal abrasion of Corneal ulcer of Foreign body in Acute cp iritis of 00:45 Data reviewed: vital signs, nurses notes, old medical records, notes from previous ED cp visit. 08/30 00:13 Order name: Visual Acuity; Complete Time: 00:19 cp Administered Medications: No medications were administered Disposition: 01:00 Chart complete. cp 01:30 Co-signature as Attending Physician, Gary Nava MD I agree with the assessment and tw4 plan of care. Disposition: 08/30/17 00:49 Discharged to Home as Medical Screen. Impression: Conjunctivitis - Right Eye. - Condition is Stable. - Discharge Instructions: Conjunctivitis (Viral and Bacterial). - Medication Reconciliation Form, Thank You Letter, Antibiotic Education, Prescription Opioid Use form. - Follow up: Chepe Pennington MD; When: 48 Hours; Reason: Recheck today's complaints. Follow up: Chepe Pennington MD; When: Tomorrow; Reason: Recheck today's complaints. - Problem is an ongoing problem. - Symptoms are unchanged. Signatures: Marianna Desai RN RN Jose Manuel Ace PA PA cp Marielle Watts RN RN kr2 Gary Nava MD MD tw4 Corrections: (The following items were deleted from the chart) 00:49 00:49 08/30/2017 00:49 Discharged to Home as Medical Screen. Impression: Conjunctivitis kr2 - Right Eye. Condition is Stable. Forms are Medication Reconciliation Form, Thank You Letter, Antibiotic Education, Prescription Opioid Use. Follow up: Chepe Pennington; When: Tomorrow; Reason: Recheck today's complaints. Problem is an ongoing problem. Symptoms are unchanged. cp
== END 2017-08-30 00:49 | disposition home or self-care (01) ==
LOC: ER 22:53
DX: H10.9 Unspecified conjunctivitis (principal); F17.210 Nicotine dependence, cigarettes, uncomplicated
CPT/HCPCS: 99283